=== PATIENT | male | born 1980 | race Caucasian/White ===

== ENCOUNTER → 2019-08-27 16:26 | Outpatient (CLI) | payer OTHER, SELFPAY ==
--- NOTE | 2019-08-27 16:35 | XR_ITS ---
PROCEDURE: XR CHEST 2V CLINICAL HISTORY: chest discomfort COMPARISON: CXR1 CHEST-PORTABLE from 03/27/2014 FINDINGS: The cardiomediastinal silhouette and pulmonary vascularity are within normal limits. The lungs are clear without infiltrates, suspicious nodules, or pleural effusions. No acute bony abnormalities. IMPRESSION: No acute findings. Dictated by: Russell French MD 08/27/2019 17:00 Electronically signed by Russell French MD in [place] 08/27/2019 17:00
--- NOTE | 2019-08-27 17:09 | ECG_ITS ---
APPROVED REPORT Exam: Resting ECG HR:80 bpm ECG Measurements Heart Rate 80 AXES OH 126 P 38 QRSd 90 QRS 21 QT 342 T 19 QTc 394 <Conclusion> Normal sinus rhythm Normal ECG Electronically signed by : Den Mederos, 08/28/2019 13:40:10
[2019-08-27 17:36] LABS: Basophils # 0.1 K/mm3 (0-0.2); Basophils % 0.7 % (0.1-2.0); Eosinophils # 0.2 K/mm3 (0.0-0.4); Eosinophils % 2.1 % (0.1-12.0); Hematocrit 44.5 % (42.0-52.0); Hemoglobin 14.6 g/dL (14.1-18.0); Lymphocytes # 3.2 K/mm3 (0.7-4.5); Lymphocytes % 34.4 % (10-50); Mean Corpuscular HGB Conc 32.9 g/dL (31.8-35.4); Mean Corpuscular Hemoglobin 28.5 pg (27.0-31.2); Mean Corpuscular Volume 86.5 fl (80-94); Mean Platelet Volume 7.6 fl (7.4-10.4); Monocytes # 0.5 K/mm3 (0.1-1.0); Monocytes % 5.6 % (1.7-9.3); Neutrophils # 5.4 K/mm3 (1.8-7.8); Neutrophils % 57.2 % (37.0-80.0); Platelet Count 331 K/mm3 (142-424); Red Blood Count 5.15 M/mm3 (4.60-6.20); Red Cell Distribution Width 13.3 % (11.5-17.5); White Blood Count 9.4 K/mm3 (4.8-10.8)
[2019-08-27 17:57] LABS: Alanine Aminotransferase 37 U/L (12-78); Albumin Level 4.1 gm/dL (3.4-5.0); Albumin/Globulin Ratio 1.2 (1.1-1.8); Alkaline Phosphatase 51 U/L (46-116); Aspartate Amino Transferase 12 U/L (15-37); Bilirubin,Total 0.2 mg/dL (0.2-1.0); Blood Urea Nitrogen 13 mg/dL (7-18); CKMB Relative Index 1.3 U/L (0-4.0); Calcium 9.1 mg/dL (8.5-10.1); Carbon Dioxide 27 mmol/L (21.0-32.0); Chloride 103 mmol/L (98-107); Chol/HDL Ratio 7.1 (1-3.5); Cholesterol 235 mg/dL (140-200); Creatine Kinase 69 U/L (39-308); Creatine Kinase MB 0.9 ng/ml (0.0-3.6); Creatinine,Serum 0.84 mg/dL (0.70-1.30); Estimated Glomerular Filt Rate 102 ml/min (>60); GFR (African American) 123 ML/MIN (>60); Globulin 3.4 gm/dl (1.3-3.2); Glucose 99 mg/dL (74-106); HDL Cholesterol 33 mg/dL (27-67); LDL Cholesterol 147 mg/dL (0-130); Sodium 140 mmol/L (136-145); T4 (Thyroxine) 6.1 ug/dl (4.7-13.3); Thyroid Stimulating Hormone 1.77 uIU/ml (0.358-3.740); Total Protein,Serum 7.5 gm/dL (6.4-8.2); Triglycerides 276 mg/dL (30-200); Troponin I < 0.02 ng/ml (0.00-0.06); VLDL Cholesterol 55 mg/dL (0-40)
== END ==
PROVIDERS: PCP Nurse Practitioner Family; Visit Provider Nurse Practitioner Family
DX: R00.0 Tachycardia, unspecified (principal); R07.89 Other chest pain; R07.9 Chest pain, unspecified
CPT/HCPCS: 36415; 71046; 80053; 80061; 82550; 82553; 84436; 84443; 84484; 85025; 93005

== ENCOUNTER → 2019-08-30 11:07 | Outpatient (CLI) | payer OTHER, SELFPAY | PROVIDERS: PCP Nurse Practitioner Family; Visit Provider Nurse Practitioner Family | DX: R00.0 Tachycardia, unspecified (principal) | CPT/HCPCS: 93225; 93226 ==

== ENCOUNTER 2020-08-06 15:02 | Emergency (ER) | payer OTHER, SELFPAY ==
[2020-08-06 16:40] VITALS: BP 106/89; PULSE 104; RESP 19; TEMP 36.9; O2SAT 100; BMI 34.0
--- NOTE | 2020-08-06 16:57 | HMH.EDUTC ---
[facility] – [place], [place] Disposition Clinical Impression: Viral syndrome Disposition: Home, Self-Care Condition on Discharge: Good Instructions: DI for Nausea -- Adult, Diarrhea, DI for COVID-19 (Suspected or Confirmed ), Coronavirus Disease 2019, Preventing the Spread of Coronavirus Discharge Instructions Additional Instructions: ? Avoid fruit juices, as these do not replace minerals and can actually increase diarrhea. ? Children and adults can use sports drinks to replenish electrolytes. Younger children and infants should use products formulated for children, like oral rehydration solutions. ? Eat food in small amounts and let your stomach recover. ? Get lots of rest. You may feel tired or weak. ? No greasy or fried foods for the next 24-48 hours BRAT diet Bananas Rice Apples and [place] ? Make sure to drink plenty of liquids ? Return if needed ? Straight to ER if any life threatening symptoms ? You was given an outpatient order for diarrhea panel, please collect specimen and bring back to outpatient lab then call back to the [facility] or follow up with family doctor for results ? Follow up with family doctor in the next 48-72 hours if no improvement or any worsening of symptoms Prescriptions: Dicyclomine HCl [Bentyl 10mg capsule] 10 mg PO TID PRN #15 cap PRN Reason: Cramping Transmission Status: Pending to [facility] Ondansetron [Zofran 4mg ODT] 4 mg PO TIDP PRN #10 tab PRN Reason: Nausea Transmission Status: Pending to [facility] Referrals: Tamiko Medina APRN [Primary Care Provider] - As needed Forms: Work/School Release Time of Disposition: 17:10 Medical Decision Making - Fabrizio Inquiry Pt receiving controlled substance: No Fabrizio was queried for this patient: No Vital Signs: 08/06/20 16:40 Temperature 98.4 F Temperature Source Oral Pulse Rate [Right Brachial] 104 H Respiratory Rate 19 Blood Pressure [Right Arm] 106/89 L Blood Pressure Mean [Right Arm] 94 Blood Pressure Source [Right Arm] Automatic Cuff Blood Pressure Position [Right Arm] Sitting 02 Sat by Pulse Oximetry 100 Oxygen Delivery Method Room Air - Lab Data Lab results reviewed: Yes: I reviewed the patient's lab results. Orders (Tests/Meds): ORDERS Category Date Time Status Covid-19 Nasal PCR ([facility]) Routine Lab 08/06/20 16:40 Received Medical Decision Narrative: Patient reports that he has taken zofran before without complications No vomiting or diarrhea since arrival [facility] – [place], [place] HPI - General Stated complaint: flu symptoms Time Seen by Provider: 08/06/20 16:57 Mode of Arrival: Ambulatory Source of Information: Patient Limitations: No Limitations Description of Symptoms (Recalled from Triage Doc. by RN): COVID TEST. C/O FLU-LIKE SYMPTOMS HEENT Symptoms (Recalled from RN notes): No Resp Symptoms (Recalled from RN notes): No Skin Symptoms (Recalled from RN notes): No MS Symptoms (Recalled from RN notes): No Functional Status (Recalled from RN notes): WNL - History of Present Illness Provider Complaint: Patient states that he has been having flu like symptoms State that he has been having body aches, chills, nausea and diarrhea State that today he has had a headache and over all feeling like he has the flu State that he hasnt been exposed to COVID that he is aware of but wants to get tested - Related Data Previous Rx's Medication Instructions Recorded omeprazole 40 mg capsule,delayed 40 mg PO DAILY #30 cap 09/09/19 release propranolol 60 mg capsule,24 60 mg PO DAILY #30 cap 09/09/19 hr,extended release simvastatin 5 mg tablet 5 mg PO DAILY #30 tab 09/11/19 paroxetine HCl 20 mg tablet 20 mg PO DAILY #90 tab 05/19/20 Dicyclomine HCl [Bentyl 10mg 10 mg PO TID PRN #15 cap 08/06/20 capsule] Ondansetron [Zofran 4mg ODT] 4 mg PO TIDP PRN #10 tab 08/06/20 Allergies Allergy/AdvReac Type Severity Reaction Status Date / Time No Known Allergies Allergy Verified 09/09/19 10:37 - Worker's Comp Is this a W
[2020-08-06 17:15] VITALS: BP 106/89; PULSE 104; RESP 19; TEMP 36.9; O2SAT 100
[2020-08-06 19:45] LABS: UTC Influenza A Antigen Negative (Negative); UTC Influenza B Antigen Negative (Negative)
== END 2020-08-06 17:21 | disposition home or self-care (01) ==
PROVIDERS: Emergency Provider Nurse Practitioner; PCP Nurse Practitioner Family
DX: Z20.822 Contact with and (suspected) exposure to COVID-19 (principal); B34.9 Viral infection, unspecified; E03.9 Hypothyroidism, unspecified; F41.8 Other specified anxiety disorders; K21.9 Gastro-esophageal reflux disease without esophagitis; Z87.891 Personal history of nicotine dependence; Z79.899 Other long term (current) drug therapy
CPT/HCPCS: 87804; 99202; G0463; U0003

== ENCOUNTER → 2021-06-08 14:23 | Outpatient (CLI) | payer OTHER, SELFPAY ==
[2021-06-08 14:54] LABS: Direct LDL Cholesterol 218.14 mg/dL (100-129)
[2021-06-08 15:00] LABS: 25-OH Vitamin D, Total 17.6 ng/mL (30-100)
[2021-06-08 15:06] LABS: Basophils # 0.1 K/mm3 (0-0.2); Basophils % 1.1 % (0.1-2.0); Eosinophils # 0.1 K/mm3 (0.0-0.4); Eosinophils % 1.6 % (0.1-12.0); Hematocrit 46.5 % (42.0-52.0); Hemoglobin 15.3 g/dL (14.1-18.0); Lymphocytes # 2.7 K/mm3 (0.7-4.5); Lymphocytes % 30.2 % (10-50); Mean Corpuscular HGB Conc 32.9 g/dL (31.8-35.4); Mean Corpuscular Hemoglobin 29.5 pg (27.0-31.2); Mean Corpuscular Volume 89.6 fl (80-94); Mean Platelet Volume 9.4 fl (7.4-10.4); Monocytes # 0.5 K/mm3 (0.1-1.0); Monocytes % 5.2 % (1.7-9.3); Neutrophils # 5.4 K/mm3 (1.8-7.8); Neutrophils % 61.8 % (37.0-80.0); Platelet Count 386 K/mm3 (142-424); Red Blood Count 5.19 M/mm3 (4.60-6.20); Red Cell Distribution Width 13.6 % (11.5-17.5); White Blood Count 8.8 K/mm3 (4.8-10.8)
[2021-06-08 15:13] LABS: Thyroid Stimulating Hormone 1.73 uIU/mL (0.465-4.68)
[2021-06-08 15:31] LABS: Vitamin B12 715 pg/mL (239-931)
[2021-06-08 16:11] LABS: Chloride 100 mmol/L (98-107); Potassium 4.8 mmoL/L (3.5-5.1); Sodium 138 mmol/L (136-145)
[2021-06-08 16:14] LABS: Alanine Aminotransferase 71 U/L (12-78); Albumin Level 4.5 g/dl (3.5-5.0); Albumin/Globulin Ratio 1.6 (1.1-1.8); Alkaline Phosphatase 81 U/L (38-126); Anion Gap 14.8 mEq/L (5-15); Aspartate Amino Transferase 49 U/L (17-59); Bilirubin,Total 0.2 mg/dl (0.2-1.3); Blood Urea Nitrogen 10 mg/dl (9-20); Carbon Dioxide 28 mmol/L (22.0-30.0); Cholesterol 263 mg/dl (140-200); Estimated Glomerular Filt Rate 184 ml/min (>60); GFR (African American) 223 ML/MIN (>60); Globulin 2.8 g/dL (1.3-3.2); Glucose 155 mg/dl (74-100); Total Protein,Serum 7.3 g/dl (6.3-8.2); Triglycerides 192 mg/dl (30-150); VLDL Cholesterol 38 mg/dL (0-40)
[2021-06-08 16:15] LABS: Chol/HDL Ratio 6.7 (1-3.5); HDL Cholesterol 39 mg/dl (40-60); Magnesium 1.9 mg/dl (1.6-2.3)
[2021-06-08 16:55] LABS: Hemoglobin A1C 7.4 % (4.0-6.0)
[2021-06-13 11:47] LABS: Testosterone, Total, LC/MS 224.2 ng/dL (264.0-916.0)
== END ==
LOC: LAB.DROPOF 14:24
PROVIDERS: Visit Provider Nurse Practitioner Family
DX: R25.2 Cramp and spasm (principal); R53.83 Other fatigue; E55.9 Vitamin D deficiency, unspecified; R79.89 Other specified abnormal findings of blood chemistry
CPT/HCPCS: 80053; 80061; 82306; 82607; 83036; 83735; 84403; 84436; 84443; 85025

== ENCOUNTER → 2021-06-18 08:15 | Outpatient (CLI) | payer OTHER, SELFPAY ==
--- NOTE | 2021-06-18 08:15 | US_ITS ---
PROCEDURE: US ABDOMEN LIMITED CLINICAL INDICATION: mass to flank COMPARISON: No exams were available for comparison FINDINGS: Unremarkable appearing spleen at 12 x 10 cm. Unremarkable appearing left kidney at 13 x 7 by 8 cm. No abnormal fluid collections demonstrated. CT may provide more thorough evaluation for possible mass. IMPRESSION: Negative left upper quadrant ultrasound Dictated by: Russell French MD 06/18/2021 13:45 Russell French MD in [place] 06/18/2021 13:45
== END ==
LOC: RAD 08:15
PROVIDERS: PCP Nurse Practitioner Family; Visit Provider Nurse Practitioner Family
DX: R10.9 Unspecified abdominal pain (principal); R19.00 Intra-abdominal and pelvic swelling, mass and lump, unspecified site
CPT/HCPCS: 76705

== ENCOUNTER 2021-07-11 17:16 | Emergency (ER) | payer OTHER, SELFPAY ==
[2021-07-11 18:20] VITALS: BP 135/71; PULSE 104; RESP 22; TEMP 37.5; O2SAT 96; BMI 41.1
[2021-07-11 18:41] LABS: UTC Influenza A Antigen Negative (Negative); UTC Influenza B Antigen Negative (Negative)
--- NOTE | 2021-07-11 19:06 | HMH.EDUTC ---
[facility] Disposition Clinical Impression: Viral syndrome Disposition: Home, Self-Care Condition on Discharge: Good Instructions: DI for Viral Syndrome, Nausea and Vomiting-Adult, DI for COVID-19 (Suspected or Confirmed ), Preventing the Spread of Coronavirus Discharge Instructions Additional Instructions: *Monitor Temp, Over the counter Motrin or Tylenol as directed/as needed Tylenol every 4 hours and Motrin every 6 hours (as long as your family doctor has told you that you can take it) for fever or pain. and straight to ER if unable to lower temp less than 101.0 after medication given *Warm salt water gargles may help to soothe the throat *Throat Lozenges *Warm fluids like tea with honey may help to soothe the throat *Sleep elevated *Humidifier/Vaporizer *Make sure to drink plenty of fluids Zofran as needed for vomiting Follow up IMMEDIATELY for new or worsening symptoms or no Noticeable improvement over the next 48-72 hours. 911 for difficulty breathing or swallowing You were tested for today for COVID19 your test result should be back in the next 24-48 hours, you may Check your results on the [facility] My health portal if you have trouble viewing your results or logging on you may call You was given a handout with instructions for Self Quarantine and Self isolation for while you wait on test results and what to do if they are positive If you are positive the Health Dept will be contacting you also Make sure to take your Vitamins Vit. C Vit D and Zinc if you can take them Prescriptions: Ondansetron [Zofran 4mg ODT] 4 mg PO TIDP PRN #9 tab PRN Reason: Vomiting Transmission Status: Pending to [facility] Referrals: Tamiko Medina APRN [Primary Care Provider] - Forms: Work/School Release Time of Disposition: 19:16 Medical Decision Making - Fabrizio Inquiry Pt receiving controlled substance: No Fabrizio was queried for this patient: No Vital Signs: 07/11/21 18:20 Temperature 99.5 F Temperature Source Oral Pulse Rate [Right Brachial] 104 H Respiratory Rate 22 Blood Pressure [Right Arm] 135/71 Blood Pressure Mean [Right Arm] 92 Blood Pressure Source [Right Arm] Automatic Cuff Blood Pressure Position [Right Arm] Sitting 02 Sat by Pulse Oximetry 96 Oxygen Delivery Method Room Air - Lab Data Lab results reviewed: Yes: I reviewed the patient's lab results. Lab Results 07/11/21 18:29: Influenza Type A Ag Negative, Influenza Type B Ag Negative Orders (Tests/Meds): ORDERS Category Date Time Status Covid-19 Nasal PCR ([facility]) Routine Lab 07/11/21 18:37 Received Medical Decision Narrative: Patient states that he has taken zofran before without complication or reactions [facility] HPI - General Stated complaint: flu like symptoms Time Seen by Provider: 07/11/21 19:07 Mode of Arrival: Ambulatory Source of Information: Patient Limitations: No Limitations Description of Symptoms (Recalled from Triage Doc. by RN): PATIENT C/O FEVER, BODY ACHES, VOMITING, COUGH AND CONGESTION HEENT Symptoms (Recalled from RN notes): No Resp Symptoms (Recalled from RN notes): Yes Skin Symptoms (Recalled from RN notes): No MS Symptoms (Recalled from RN notes): No Functional Status (Recalled from RN notes): WNL - History of Present Illness Provider Complaint: Patient state that he felt ok earlier but then it hit him at work States that he was feeling like he had a fever, bodyaches, chills, cough, nasal congestion and feeling tired State that as the evening went on he continued to feel worse so he came in to get checked for flu or COVID - Related Data Previous Rx's Medication Instructions Recorded paroxetine HCl 20 mg tablet 20 mg PO DAILY #90 tab 06/08/21 metformin 500 mg tablet 500 mg PO BID #60 tab 06/29/21 Ondansetron [Zofran 4mg ODT] 4 mg PO TIDP PRN #9 tab 07/11/21 Allergies Allergy/AdvReac Type Severity Reaction Status Date / Time No Known Allergies Allergy Verified 06/29/21 13:39 - Wor
[2021-07-11 19:15] VITALS: BP 135/71; PULSE 104; RESP 22; TEMP 37.5; O2SAT 96
== END 2021-07-11 19:20 | disposition home or self-care (01) ==
PROVIDERS: Emergency Provider Nurse Practitioner; PCP Nurse Practitioner Family
DX: U07.1 COVID-19 (principal); K21.9 Gastro-esophageal reflux disease without esophagitis; F41.8 Other specified anxiety disorders; E03.9 Hypothyroidism, unspecified; Z87.891 Personal history of nicotine dependence
CPT/HCPCS: 87804; 99202; C9803; G0463; U0003; U0005

== ENCOUNTER 2022-03-12 15:12 | Emergency (ER) | payer SELFPAY ==
[2022-03-12 16:25] VITALS: BP 136/92; PULSE 131; RESP 20; TEMP 36.9; O2SAT 96; BMI 36.9
--- NOTE | 2022-03-12 16:43 | HMH.EDUTC ---
[facility] – [place] Disposition Clinical Impression: Strep throat Disposition: Home, Self-Care Condition on Discharge: Good Instructions: Strep Throat, DI for Strep Throat, DI for COVID-19 (Suspected or Confirmed ), Preventing the Spread of Coronavirus Discharge Instructions Additional Instructions: *Monitor Temp, Over the counter Motrin or Tylenol as directed/as needed Tylenol every 4 hours and Motrin every 6 hours (as long as your family doctor has told you that you can take it) for fever or pain. and straight to ER if unable to lower temp less than 101.0 after medication given *Warm salt water gargles may help to soothe the throat *Throat Lozenges *Warm fluids like tea with honey may help to soothe the throat *Sleep elevated *Humidifier/Vaporizer *If you did not take Penicillin shot or was unable to, start taking antibiotic immediately and make sure that you take it for the FULL length of time although you should start to feel better in 24-48 hours *change toothbrush and toothpaste 24-48 hours after starting to take antibiotics so you do not reinfect yourself Monitor Temp. Tylenol and/or Ibuprofen as needed. ER if fever is no less than 101 despite alternating Tylenol and Ibuprofen * Encourage fluids, water, Gatorade, powerade, pedialyte if /toddler/or child *Cold fluids, popsicles and ice cream may feel good on his throat Follow up IMMEDIATELY for new or worsening symptoms or no Noticeable improvement over the next 48-72 hours. 911 for difficulty breathing or swallowing You were tested for today for COVID19 your test result should be back in the next 24-48 hours, you may check your results on the [facility] My Health Portal Make sure to take your Vitamins Vit. C Vit D and Zinc if you can take them Prescriptions: Benzonatate [Benzonatate 100mg cap] 100 mg PO Q8HP PRN #30 cap PRN Reason: Cough Transmission Status: Received by [facility] Azithromycin [Z-Abraham 250mg Tab] 250 mg PO DIRECTED #6 tab Transmission Status: Received by [facility] Referrals: Fransisco Mcdaniel MD [Primary Care Provider] - As needed Medical Decision Making - Fabrizio Inquiry Pt receiving controlled substance: No Fabrizio was queried for this patient: No Vital Signs: 08/16/22 16:25 03/12/22 17:13 Temperature 98.5 F 98.5 F Temperature Source Oral Pulse Rate 131 H Pulse Rate [Right Brachial] 131 H Respiratory Rate 20 20 Blood Pressure 136/92 H Blood Pressure [Right Arm] 136/92 H Blood Pressure Mean [Right Arm] 106 Blood Pressure Source [Right Arm] Automatic Cuff Blood Pressure Position [Right Arm] Sitting 02 Sat by Pulse Oximetry 96 Oxygen Delivery Method Room Air - Lab Data Lab results reviewed: Yes: I reviewed the patient's lab results. Lab Results 03/12/22 16:36: Influenza Type A Ag Negative, Influenza Type B Ag Negative 03/12/22 16:53: Strep Scn [facility] Positive A Orders (Tests/Meds): ORDERS Category Date Time Status Covid-19 Nasal PCR ([facility]) Routine Lab 03/12/22 16:25 Received [facility] [place] HPI - General Stated complaint: cough,SOB,Body aches Time Seen by Provider: 03/12/22 16:43 Mode of Arrival: Ambulatory Source of Information: Patient Limitations: No Limitations Description of Symptoms (Recalled from Triage Doc. by RN): PATIENT C/O FATIGUE, SOA, BODY ACHES, COUGH AND FEVER SINCE YESTERDAY HEENT Symptoms (Recalled from RN notes): No Resp Symptoms (Recalled from RN notes): Yes Skin Symptoms (Recalled from RN notes): No MS Symptoms (Recalled from RN notes): No Functional Status (Recalled from RN notes): WNL - History of Present Illness Provider Complaint: Patient states that he hasnt been feeling well for the last couple of days States that he has been having sore throat, fatigue, cough and fever on and off States that throat hurts when he swallows States that today he has been feeling achy all over and headache so he came in to get checked - Related Data Previous Rx's Medication Ins
[2022-03-12 17:04] LABS: UTC Strep Screen (Rapid) Positive (Negative)
[2022-03-12 17:13] VITALS: BP 136/92; PULSE 131; RESP 20; TEMP 36.9; O2SAT 96
[2022-03-12 19:01] LABS: UTC Influenza A Antigen Negative (Negative); UTC Influenza B Antigen Negative (Negative)
== END 2022-03-12 17:23 | disposition home or self-care (01) ==
PROVIDERS: Emergency Provider Nurse Practitioner; PCP Emergency Medicine
DX: U07.1 COVID-19 (principal); J02.0 Streptococcal pharyngitis
CPT/HCPCS: 87804; 87880; 99212; C9803; G0463; U0003; U0005

== ENCOUNTER → 2022-04-19 13:59 | Outpatient (CLI) | payer BC, SELFPAY ==
[2022-04-19 14:18] LABS: Basophils # 0.1 K/mm3 (0-0.2); Basophils % 0.9 % (0.1-2.0); Eosinophils # 0.1 K/mm3 (0.0-0.4); Eosinophils % 1.6 % (0.1-12.0); Hematocrit 45.9 % (42.0-52.0); Hemoglobin 15.8 g/dL (14.1-18.0); Lymphocytes # 2.4 K/mm3 (0.7-4.5); Lymphocytes % 29.2 % (10-50); Mean Corpuscular HGB Conc 34.5 g/dL (31.8-35.4); Mean Corpuscular Hemoglobin 30.8 pg (27.0-31.2); Mean Corpuscular Volume 89.4 fl (80-94); Mean Platelet Volume 9.5 fl (7.4-10.4); Monocytes # 0.4 K/mm3 (0.1-1.0); Monocytes % 4.4 % (1.7-9.3); Neutrophils # 5.3 K/mm3 (1.8-7.8); Neutrophils % 63.9 % (37.0-80.0); Platelet Count 367 K/mm3 (142-424); Red Blood Count 5.14 M/mm3 (4.60-6.20); Red Cell Distribution Width 14.3 % (11.5-17.5); White Blood Count 8.3 K/mm3 (4.8-10.8)
[2022-04-19 15:01] LABS: Hemoglobin A1C > 14.0 % (4.0-6.0)
[2022-04-19 15:13] LABS: Alanine Aminotransferase 47 U/L (12-78); Albumin Level 4.1 g/dl (3.5-5.0); Albumin/Globulin Ratio 1.2 (1.1-1.8); Alkaline Phosphatase 131 U/L (38-126); Anion Gap 21.7 mEq/L (5-15); Aspartate Amino Transferase 31 U/L (17-59); Bilirubin,Indirect 0.3 mg/dL (0.0-0.9); Bilirubin,Total 0.3 mg/dl (0.2-1.3); Bilirubin,Unconjugated 0.3 mg/dL (0.0-1.1); Blood Urea Nitrogen 7 mg/dl (9-20); Calcium 8.7 mg/dl (8.4-10.2); Carbon Dioxide 21 mmol/L (22.0-30.0); Chloride 97 mmol/L (98-107); Chol/HDL Ratio 11.4 (1-3.5); Cholesterol 273 mg/dl (140-200); Estimated Glomerular Filt Rate 183 ml/min (>60); GFR (African American) 222 ML/MIN (>60); Globulin 3.3 g/dL (1.3-3.2); HDL Cholesterol 24 mg/dl (40-60); Potassium 4.7 mmoL/L (3.5-5.1); Sodium 135 mmol/L (136-145); Total Protein,Serum 7.4 g/dl (6.3-8.2)
[2022-04-19 15:31] LABS: Direct LDL Cholesterol < 30.00 mg/dL (100-129)
[2022-04-19 15:33] LABS: Glucose 473 mg/dl (74-100)
[2022-04-19 15:45] LABS: Thyroid Stimulating Hormone 1.45 uIU/mL (0.465-4.68)
[2022-04-19 17:01] LABS: Triglycerides 2771 mg/dl (30-150)
== END ==
LOC: LAB.DROPOF 13:59
PROVIDERS: PCP Nurse Practitioner Family; Visit Provider Nurse Practitioner Family
DX: R53.83 Other fatigue (principal); E11.9 Type 2 diabetes mellitus without complications; B34.9 Viral infection, unspecified; Z79.84 Long term (current) use of oral hypoglycemic drugs
CPT/HCPCS: 80053; 80061; 80076; 83036; 84443; 85025

== ENCOUNTER → 2022-09-13 14:18 | Outpatient (CLI) | payer BC, SELFPAY ==
[2022-09-13 15:33] LABS: Alanine Aminotransferase 35 U/L (12-78); Albumin Level 4.3 g/dl (3.5-5.0); Albumin/Globulin Ratio 1.5 (1.1-1.8); Alkaline Phosphatase 78 U/L (38-126); Anion Gap 15.3 mEq/L (5-15); Aspartate Amino Transferase 26 U/L (17-59); Bilirubin,Total 0.6 mg/dl (0.2-1.3); Blood Urea Nitrogen 9 mg/dl (9-20); Calcium 8.1 mg/dl (8.4-10.2); Carbon Dioxide 19 mmol/L (22.0-30.0); Chloride 105 mmol/L (98-107); Estimated Glomerular Filt Rate 236 ml/min (>60); GFR (African American) 285 ML/MIN (>60); Globulin 2.8 g/dL (1.3-3.2); Glucose 307 mg/dl (74-100); Potassium 4.3 mmoL/L (3.5-5.1); Sodium 135 mmol/L (136-145); Total Protein,Serum 7.1 g/dl (6.3-8.2)
[2022-09-13 17:30] LABS: Hemoglobin A1C 12.2 % (4.0-6.0)
== END ==
LOC: LAB.DROPOF 14:19
PROVIDERS: PCP Nurse Practitioner Family; Visit Provider Nurse Practitioner Family
DX: I10 Essential (primary) hypertension (principal); E11.9 Type 2 diabetes mellitus without complications; Z79.84 Long term (current) use of oral hypoglycemic drugs
CPT/HCPCS: 80053; 83036

== ENCOUNTER → 2022-09-20 06:55 | Outpatient (CLI) | payer BC, SELFPAY ==
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
== END ==
LOC: RAD 06:55
PROVIDERS: PCP Nurse Practitioner Family; Visit Provider Nurse Practitioner Family
DX: R10.9 Unspecified abdominal pain (principal)
CPT/HCPCS: 74176

== ENCOUNTER 2022-11-10 20:40 | Emergency (ER) | payer OTHER, BC, SELFPAY ==
[2022-11-10 20:39] VITALS: BP 158/120; PULSE 114; RESP 16; TEMP 36.9; O2SAT 96
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
--- NOTE | 2022-11-10 20:40 | PC.NURSE ---
FS: 188
--- NOTE | 2022-11-10 20:40 | PC.NURSE ---
RAD at BS for XRAY
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
[2022-11-10 21:19] VITALS: BMI 37.7
--- NOTE | 2022-11-10 21:41 | PC.NURSE ---
Rounded on pt. Pt complains of pain 5/10. RN and MD notified.
[2022-11-10 21:46] VITALS: BP 137/96; BP 158/120; PULSE 114; PULSE 90; RESP 16; RESP 18; TEMP 36.6; O2SAT 98; BMI 38.7
== END 2022-11-10 21:52 | disposition home or self-care (01) ==
PROVIDERS: Emergency Provider Emergency Medicine; PCP Nurse Practitioner Family
DX: S16.1XXA Strain of muscle, fascia and tendon at neck level, initial encounter (principal); S39.002A Unspecified injury of muscle, fascia and tendon of lower back, initial encounter; V49.40XA Driver injured in collision with unspecified motor vehicles in traffic accident, initial encounter; Z87.891 Personal history of nicotine dependence
CPT/HCPCS: 70450; 71045; 72125; 72128; 72131; 72170; 73030; 73110; 99284; 99285

== ENCOUNTER 2022-12-29 15:28 | Emergency (ER) | payer BC, SELFPAY ==
[2022-12-29 15:29] VITALS: BP 128/79; PULSE 116; RESP 16; TEMP 36.4; O2SAT 95; BMI 37.5
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
[2022-12-29 16:29] VITALS: BP 128/79; PULSE 116; RESP 16; TEMP 36.4; O2SAT 95
== END 2022-12-29 16:31 | disposition home or self-care (01) ==
PROVIDERS: Emergency Provider Nurse Practitioner Family; PCP Nurse Practitioner Family
DX: S86.111A Strain of other muscle(s) and tendon(s) of posterior muscle group at lower leg level, right leg, initial encounter (principal); X50.0XXA Overexertion from strenuous movement or load, initial encounter
CPT/HCPCS: 73590; 99212; 99214; G0463